=== PATIENT | male | born 1935 | race Caucasian/White ===

== ENCOUNTER 2021-11-26 14:21 | Emergency (ER) | payer MEDICARE ==
[~2021-11-26] VITALS: Ht 170.2 cm; Wt 72.7 kg
[2021-11-26 15:22] LABS: BASOPHILS % (AUTO) 0.6 % (0.0-2.0); EOSINOPHILS % (AUTO) 10.8 % (1.0-6.0); LYMPHOCYTES % (AUTO) 23.1 % (22.0-44.0); MEAN CORPUSCULAR HGB CONC 30.6 G/dL (31.0-37.0); MEAN CORPUSCULAR VOLUME 75 fL (80-100); MONOCYTES # (AUTO) 0.5 K/uL (0.1-1.0); MONOCYTES % (AUTO) 11.8 % (2.0-9.0); NEUTROPHILS # (AUTO) 2.3 K/uL (1.8-7.7); NEUTROPHILS % (AUTO) 53.7 % (40.0-70.0); PLATELET COUNT (AUTO) 211 K/uL (150-450); RED BLOOD CELL COUNT(AUTO) 2.79 MIL/uL (4.50-5.90); RED CELL DISTRIBUTION WIDTH 20.6 % (11.5-14.5)
[2021-11-26 15:25] LABS: CALCIUM, TOTAL 9.5 mg/dL (8.8-10.5); CREATININE 1.3 mg/dL (0.60-1.30); POTASSIUM 3.5 mmol/L (3.5-5.1)
[2021-11-26 15:26] LABS: HEMOGLOBIN 6.4 g/dL (13.5-17.5)
[2021-11-26 15:27] LABS: HEMATOCRIT 20.9 % (41-53)
[2021-11-26 15:47] LABS: PLATELET MORPHOLOGY COMMENT LARGE PLTS PRESENT
[2021-11-26 15:49] LABS: COVID AG,FIA SOURCE NASOPHARYNGEAL
[2021-11-26] MEDS ORDERED: ACETAMINOPHEN 500 MG TABLET PO ONE (16:00)
[2021-11-26 16:45] VITALS: BP 132/71
[2021-11-26 17:00] VITALS: BP 135/65
[2021-11-26 17:15] VITALS: BP_SYST 109; BP_SYST 127; BP_DIAS 51; BP_DIAS 57; BP_DIAS 92
== END 2021-11-26 17:51 | disposition short-term general hospital (02) ==
LOC: EDBD 14:23 → EMS 14:23
DX: D64.9 Anemia, unspecified (principal); I10 Essential (primary) hypertension; E11.9 Type 2 diabetes mellitus without complications; Z79.899 Other long term (current) drug therapy; Z20.822 Contact with and (suspected) exposure to COVID-19
CPT/HCPCS: 36415; 36430; 80048; 82962; 85025; 86850; 86900; 86901; 86923; 87426; 99285; P9016